=== PATIENT | female | born 1985 | race African-American/Black ===

== ENCOUNTER 2020-06-16 15:29 | Emergency (ER) | payer OTHER ==
[~2020-06-16] VITALS: Ht 157.5 cm; Wt 70.3 kg
[~2020-06-16 15:29] MED LIST: CITRATE OF MAG296 ML PO; COLACE100 MG PO; DIFLUCAN200 MG PO; FLAGYL500 MG PO; ONDANSETRON HCL4 M2 PO
[2020-06-16] MEDS ORDERED: PREDNISONE 20 M20 MG PO (18:26)
[2020-06-16] MEDS ORDERED: PROAIR HFA8.5 GM INH (18:26)
[2020-06-16] MEDS ORDERED: PROMETH-CODEIN 65 ML PO (18:26)
[2020-06-16 18:43] VITALS: BP 118/74
== END 2020-06-16 18:43 | disposition home or self-care (01) ==
LOC: ER 15:29
DX: U07.1 COVID-19 (principal)

== ENCOUNTER 2020-07-02 17:52 | Emergency (ER) | payer OTHER ==
[~2020-07-02] VITALS: Ht 157.5 cm; Wt 68.0 kg
[~2020-07-02 17:52] MED LIST changes: +PREDNISONE 20 M20 MG PO; +PROAIR HFA8.5 GM INH; +PROMETH-CODEIN 65 ML PO
[2020-07-02] MEDS ORDERED: MUCINEX DM ER1 EACH PO (19:09)
[2020-07-02 19:12] VITALS: BP 106/79
== END 2020-07-02 19:21 | disposition home or self-care (01) ==
LOC: ER 17:52
DX: G44.83 Primary cough headache (principal); Z86.19 Personal history of other infectious and parasitic diseases; Z79.899 Other long term (current) drug therapy

== ENCOUNTER 2020-07-10 21:06 | Emergency (ER) | payer OTHER ==
[~2020-07-10] VITALS: Ht 157.5 cm; Wt 70.3 kg
[~2020-07-10 21:06] MED LIST changes: +MUCINEX DM ER1 EACH PO
[2020-07-11] MEDS ORDERED: PENICILLIN VK500 MG PO (02:41)
[2020-07-11 02:47] VITALS: BP 107/63
== END 2020-07-11 02:44 | disposition home or self-care (01) ==
LOC: ER 21:06
DX: J02.9 Acute pharyngitis, unspecified (principal); Z79.899 Other long term (current) drug therapy